=== PATIENT | female | born 1990 | race Hispanic/Latino ===

== ENCOUNTER 2024-11-24 15:03 | Emergency (ER) | payer OTHER ==
[~2024-11-24] VITALS: Ht 162.6 cm; Wt 60.8 kg
[2024-11-24] MEDS: SODIUM CHLORIDE 0.9% 1000ML 1,000 ML IV ONE (15:46)
[2024-11-24 17:24] VITALS: PULSE 71; RESP 14; TEMP 98; O2SAT 100
== END 2024-11-24 17:53 | disposition home or self-care (01) ==
LOC: FSED 15:09
DX: O20.0 Threatened abortion (principal)
CPT/HCPCS: 36415; 76801; 76830; 80053; 81025; 84702; 85025; 85610; 86900; 99284; J7030